=== PATIENT | male | born 1945 | race Caucasian/White ===

== ENCOUNTER 2017-09-11 11:19 | Emergency (ER) | payer OTHER ==
[~2017-09-11] VITALS: Ht 182.9 cm; Wt 88.5 kg
[~2017-09-11 11:19] MED LIST: CRESTOR5 MG PO; LISINOPRIL2.5 MG PO; MUCINEX600 MG; SIMVASTATIN5 MG; ZOCOR20 MG; ZYRTEC5 MG
== END 2017-09-11 17:24 | disposition home or self-care (01) ==
LOC: ER 11:19
DX: K29.70 Gastritis, unspecified, without bleeding (principal)

== ENCOUNTER 2018-02-19 13:23 | Emergency (ER) | payer OTHER ==
[~2018-02-19] VITALS: Ht 182.9 cm; Wt 88.5 kg
== END 2018-02-19 16:05 | disposition home or self-care (01) ==
LOC: ER 13:23
DX: L50.8 Other urticaria (principal); D69.49 Other primary thrombocytopenia; B34.9 Viral infection, unspecified

== ENCOUNTER 2018-02-20 17:18 | Emergency (ER) | payer OTHER ==
[~2018-02-20] VITALS: Ht 182.9 cm; Wt 88.5 kg
== END 2018-02-20 22:44 | disposition home or self-care (01) ==
LOC: ER 17:18
DX: S83.8X1A Sprain of other specified parts of right knee, initial encounter (principal); X50.9XXA Other and unspecified overexertion or strenuous movements or postures, initial encounter; Y93.B9 Activity, other involving muscle strengthening exercises; Y92.39 Other specified sports and athletic area as the place of occurrence of the external cause; Y99.8 Other external cause status

== ENCOUNTER 2018-08-06 02:20 | Emergency (ER) | payer OTHER ==
[~2018-08-06] VITALS: Ht 182.9 cm; Wt 88.5 kg
[2018-08-06] MEDS ORDERED: DOLOGESIC 500-1 EACH PO (06:38)
== END 2018-08-06 06:42 | disposition home or self-care (01) ==
LOC: ER 02:20
DX: R51 Headache (principal)

== ENCOUNTER 2019-06-23 10:29 | Emergency (ER) | payer OTHER ==
[~2019-06-23] VITALS: Ht 182.9 cm; Wt 88.5 kg
[~2019-06-23 10:29] MED LIST changes: +DOLOGESIC 500-1 EACH PO
[2019-06-23] MEDS ORDERED: LEVOTHYROXINE25 MCG PO (10:52)
== END 2019-06-23 13:49 | disposition home or self-care (01) ==
LOC: ER 10:29
DX: M25.511 Pain in right shoulder (principal); M25.512 Pain in left shoulder

== ENCOUNTER 2020-06-30 11:32 | Outpatient (CLI) | payer OTHER ==
[~2020-06-30 11:32] MED LIST changes: +LEVOTHYROXINE25 MCG PO
== END 2020-07-04 11:00 | disposition home or self-care (01) ==
LOC: RX STUDY 11:32
PROVIDERS: ATTEND Colon & Rectal Surgery
DX: K59.09 Other constipation (principal)
CPT/HCPCS: 74018; 78266; A9541

== ENCOUNTER 2020-10-14 09:16 | Emergency (ER) | payer OTHER ==
[~2020-10-14] VITALS: Ht 180.3 cm; Wt 88.0 kg
[2020-10-14] MEDS ORDERED: AMITIZA24 MCG (09:44)
[2020-10-14] MEDS ORDERED: MIRALAX510 GM PO (16:18)
[2020-10-14] MEDS ORDERED: LEVSIN/SL0.125 MG PO (16:18)
== END 2020-10-14 17:10 ==
LOC: ER 09:16
DX: K59.09 Other constipation (principal); R10.32 Left lower quadrant pain; R50.9 Fever, unspecified; B34.9 Viral infection, unspecified; Z11.52 Encounter for screening for COVID-19

== ENCOUNTER 2021-06-06 13:52 | Emergency (ER) | payer OTHER ==
[~2021-06-06] VITALS: Ht 182.9 cm; Wt 86.2 kg
[~2021-06-06 13:52] MED LIST changes: +AMITIZA24 MCG; +LEVSIN/SL0.125 MG PO; +MIRALAX510 GM PO
[2021-06-06] MEDS ORDERED: CIPRO500 MG PO (20:32)
[2021-06-06] MEDS ORDERED: FLAGYL500MG PO (20:32)
== END 2021-06-06 20:38 | disposition home or self-care (01) ==
LOC: ER 13:52
DX: G89.18 Other acute postprocedural pain (principal); R10.84 Generalized abdominal pain; K52.9 Noninfective gastroenteritis and colitis, unspecified

== ENCOUNTER 2021-10-12 13:28 | Outpatient (CLI) | payer OTHER ==
[~2021-10-12 13:28] MED LIST changes: +CIPRO500 MG PO; +FLAGYL500MG PO
== END 2021-10-12 13:41 | disposition home or self-care (01) ==
LOC: RAD 13:28
PROVIDERS: ATTEND Colon & Rectal Surgery
DX: K59.00 Constipation, unspecified (principal)

== ENCOUNTER 2022-07-31 17:02 | Emergency (ER) | payer OTHER ==
[~2022-07-31] VITALS: Ht 180.3 cm; Wt 81.6 kg
[2022-07-31] MEDS ORDERED: HYFIBER WI12 GM/302 PO (17:54)
[2022-07-31] MEDS ORDERED: LACTULOSE10 GM/152 PO (17:54)
[2022-07-31] MEDS ORDERED: LINZESS290 MCG PO (17:54)
== END 2022-07-31 20:19 | disposition home or self-care (01) ==
LOC: ER 17:02
DX: K59.00 Constipation, unspecified (principal); E03.9 Hypothyroidism, unspecified

== ENCOUNTER 2024-02-13 09:11 | Outpatient (CLI) | payer OTHER ==
[~2024-02-13 09:11] MED LIST changes: +HYFIBER WI12 GM/302 PO; +LACTULOSE10 GM/152 PO; +LINZESS290 MCG PO
== END 2024-02-13 09:18 | disposition home or self-care (01) ==
LOC: RX STUDY 09:11
PROVIDERS: ATTEND Colon & Rectal Surgery
DX: K59.09 Other constipation (principal)

== ENCOUNTER 2024-04-12 07:00 | Outpatient (CLI) | payer OTHER ==
[~2024-04-12] VITALS: Ht 182.9 cm; Wt 68.0 kg
[2024-04-12 08:49] LABS: URINE APPEARANCE Clear; URINE BILIRRUBIN Negative (NEGATIVE); URINE BLOOD Negative; URINE COLOR Yellow; URINE GLUCOSE Negative (NEGATIVE); URINE KETONE Negative (NEGATIVE); URINE LEUKOCYTE Negative; URINE NITRATE Negative; URINE PROTEIN Negative (NEGATIVE)
[2024-04-12 08:51] LABS: URINE RBC 8.5 uL (0.0-20.8)
[2024-04-12 08:55] LABS: HEMATOCRIT 48.2 % (39.0-48.0); HEMOGLOBIN 16.8 g/dL (13-16.00); MEAN CELL VOLUME 92.8 fL (80.0-100.00); MEAN CORPUSCULAR HEMOGLOBIN 32.3 pg (27.00-32.0); MEAN CORPUSCULAR HGB CONC 34.8 g/dl (32.0-36.0); RED CELL DISTRIBUTION WIDTH 13.5 % (11.5-14.5)
[2024-04-12 08:56] LABS: PLATELET COUNT 137 K/uL (150-450)
[2024-04-12 09:02] LABS: URINE BACTERIA 3.7 uL (0.0-1933); URINE EPITHELIAL CELLS 0.3 uL (0.0-38.8); URINE WBC 1.3 uL (0.0-23.2)
[2024-04-12] MEDS ORDERED: TREXALL5 MG PO (09:18)
[2024-04-12] MEDS ORDERED: ATIVAN1 M1 PO (09:18)
[2024-04-12 09:19] LABS: INR 1.05; PARTIAL THROMBOPLASTIN TIME 32.5 SECONDS (22.0-34.0); PROTHROMBIN TIME 11.4 SECONDS (9.0-11.5)
[2024-04-12] MEDS ORDERED: NAMENDA1 EACH PO (09:19)
[2024-04-12 09:37] LABS: ALBUMIN 4.4 gm/dL (3.4-5.0); BILIRUBIN TOTAL 1.64 mg/dL (0.3-1.2); CALCIUM 10.1 mg/dL (8.5-10.1); CREATININE SERUM 1.05 mg/dL (0.70-1.30); GFR 68.31; GLOBULINA 3.7 G/DL (2.4-3.5); POTASSIUM 4.42 mEq/L (3.5-5.1); TOTAL PROTEIN 8.1 gm/dL (6.4-8.2)
== END 2024-04-12 07:05 | disposition home or self-care (01) ==
LOC: RAD 07:00 → EDSTATUS 04-17 09:00 → SURH 04-17 09:00
PROVIDERS: ATTEND Colon & Rectal Surgery
DX: K59.09 Other constipation (principal); K64.4 Residual hemorrhoidal skin tags